=== PATIENT | male | born 1990 | race Caucasian/White ===

== ENCOUNTER 2023-12-02 13:29 | Emergency (ER) | payer MEDICAID, OTHER ==
[2023-12-02 14:11] LABS: BASOPHILS # (AUTO) 0.1 10^3/uL (0.0-0.1); BASOPHILS % (AUTO) 0.8 %; EOSINOPHILS % (AUTO) 0.1 %; HCT - HEMATOCRIT 39.5 % (42.0-52.0); LYMPHOCYTES # (AUTO) 0.6 10^3/uL (1.5-3.5); LYMPHOCYTES % (AUTO) 7.5 %; MEAN CORPUSCULAR HGB CONC 35.4 g/dL (32.0-36.0); MEAN CORPUSCULAR VOLUME 95.9 fL (80.0-94.0); MEAN PLATELET VOLUME 9.6 fL (7.4-11.4); MONOCYTES # (AUTO) 0.8 10^3/uL (0.0-1.0); MONOCYTES % (AUTO) 10.7 %; NEUTROPHILS # (AUTO) 6.2 10^3/uL (1.5-6.6); NEUTROPHILS % (AUTO) 80.4 %; PLT - PLATELET COUNT 244 10^3/uL (130-450); RED BLOOD COUNT 4.12 10^6/uL (4.70-6.10); RED CELL DISTRIBUTION WIDTH 11.6 % (12.0-15.0); WHITE BLOOD COUNT 7.7 x10^3/uL (4.8-10.8)
--- NOTE | 2023-12-02 14:21 | ED Physician Documentation ---
PD HPI NVD - Stated complaint Stated Complaint: N/V,SOA,SWEATING - Chief complaint Chief Complaint: Abd Pain - Additonal information Additional information: 33-year-old male with no pertinent past medical history presents emergency department for nausea vomiting diarrhea. Patient said about 4 days ago he started feeling upset stomach nausea with emesis and multiple episodes of diarrhea to the point now that patient says it is almost clear he says that he is having multiple episodes of sweating at work he tries his heart as he can to stay hydrated and feels like he sweats it out immediately is feeling shaky and ill with any minimal activity has been trying to go to work but is feeling very weak and fatigued. He also reports that he drinks about 4-6 beers a day he has never had alcohol withdrawal symptoms in the past and does not feel like he is having any withdrawal symptoms right now and is not having any cravings with how ill he is feeling. PD PAST MEDICAL HISTORY - Past Medical History Past Medical History: No - Past Surgical History Past Surgical History: No - Present Medications Home Medications: Ambulatory Orders Medication Instructions Recorded Confirmed Naltrexone HCl 50 mg PO DAILY #30 tab 12/02/23 Ondansetron Odt [Zofran Odt] 4 mg TL Q6H PRN #10 tablet 12/02/23 - Allergies Allergies/Adverse Reactions: Allergies Allergy/AdvReac Type Severity Reaction Status Date / Time No Known Drug Allergies Allergy Verified 12/02/23 13:38 - Social History Does the pt smoke?: No Smoking Status: Never smoker Does the pt drink ETOH?: Yes ETOH Use: Beer Does the pt have substance abuse?: No - Immunizations Immunizations are current?: Yes - POLST Patient has POLST: No PD ED PE NORMAL - Vitals Vital signs reviewed: Yes - General General: Alert and oriented X 3, No acute distress - HEENT HEENT: Atraumatic, PERRL - Cardiac Cardiac: RRR - Respiratory Respiratory: No respiratory distress - Abdomen Abdomen: Normal bowel sounds, Soft, Non distended, No organomegaly, Other (Hyperactive bowel tones) - Back Back: No CVA TTP - Derm Derm: Normal color, Warm and dry, No rash - Extremities Extremities: No edema, No calf tenderness / cord Results - Vitals Vitals: Vital Signs - 24 hr 07/18/24 07/18/24 07/18/24 13:33 15:38 17:22 Temperature 36.4 C L 36.5 C Heart Rate 86 79 75 Respiratory 18 16 18 Rate Blood Pressure 131/94 H 127/87 H 149/84 H O2 Saturation 100 100 99 Oxygen O2 Source Room air - Labs Labs: Laboratory Tests 12/02/23 12/02/23 12/02/23 14:06 14:06 14:06 WBC 7.7 RBC 4.12 L Hgb 14.0 Hct 39.5 L MCV 95.9 H MCH 34.0 H MCHC 35.4 RDW 11.6 L Plt Count 244 MPV 9.6 Neut # (Auto) 6.2 Lymph # (Auto) 0.6 L Barron # (Auto) 0.8 Eos # (Auto) 0.0 Baso # (Auto) 0.1 Absolute Nucleated RBC 0.00 Nucleated RBC % 0.0 Sodium 128 L Potassium 4.3 Chloride 89 L Carbon Dioxide 23 Anion Gap 16.0 H BUN 20 Creatinine 1.7 H Estimated GFR (MDRD) 46 L Glucose 86 Calcium 10.4 H Magnesium 1.5 L Total Bilirubin 2.0 H AST 45 H ALT 39 Alkaline Phosphatase 45 Total Creatine Kinase 157 Total Protein 8.3 Albumin 5.2 Globulin 3.1 Albumin/Globulin Ratio 1.7 Lipase 46 Urine Color Urine Clarity Urine pH Ur Specific [place] Urine Protein Urine Glucose (UA) Urine Ketones Urine Occult Blood Urine Nitrite Urine Bilirubin Urine Urobilinogen Ur Leukocyte Esterase Urine RBC Urine WBC Ur Squamous Epith Cells Urine Bacteria Urine Casts Urine Mucus Ur Microscopic Review Urine Culture Comments Nasal Adenovirus (PCR) Nasal B. parapertussis DNA (PCR) Nasal Coronavir 229E PCR Nasal Coronavir HKU1 PCR Nasal Coronavir NL63 PCR Nasal Coronavir OC43 PCR Nasal Enterovir/Rhinovir PCR Nasal Influenza B PCR Nasal Influenza A PCR Nasal Parainfluen 1 PCR Nasal Parainfluen 2 PCR Nasal Parainfluen 3 PCR Nasal Parainfluen 4 PCR Nasal RSV (PCR) Nasal B.pertussis DNA PCR Nasal C.pneumoniae (PCR) Jorge Luis Human Metapneumo PCR Nasal M.pneumoniae (PCR) Nasal SARS-CoV-2 (PCR) 12/02/23 12/02/23 14:12 14:36 WBC RBC Hgb Hct MCV MCH MCHC RDW Plt Count MPV Neut # (Auto) Lymph # (Auto) Barron # (Auto) Eos # (Auto) Baso # (Auto) Absolute Nucleated RBC Nucleated RBC % Sodium Potassium Chloride Carbon Dioxide Anion Gap BUN Creatinine Estimated GFR (MDRD) Glucose Calcium Magnesium Total Bilirubin AST ALT Alkaline Phosphatase Total Creatine Kinase Total Protein Albumin Globulin Albumin/Globulin Ratio Lipase Urine Color DARK YELLOW Urine Clarity CLEAR Urine pH 6.0 Ur Specific [place] 1.025 Urine Protein 100 H Urine Glucose (UA) NEGATIVE Urine Ketones 40 H Urine Occult Blood NEGATIVE Urine Nitrite NEGATIVE Urine Bilirubin MODERATE H Urine Urobilinogen 0.2 (NORMAL) Ur Leukocyte Esterase NEGATIVE Urine RBC 0-5 Urine WBC 4-5 Ur Squamous Epith Cells RARE Squamous Urine Bacteria Rare Urine Casts 6-10 Granular Casts Urine Mucus Moderate Strands Ur Microscopic Review INDICATED Urine Culture Comments NOT INDICATED Nasal Adenovirus (PCR) NOT DETECTED Nasal B. parapertussis DNA (PCR) NOT DETECTED Nasal Coronavir 229E PCR NOT DETECTED Nasal Coronavir HKU1 PCR NOT DETECTED Nasal Coronavir NL63 PCR NOT DETECTED Nasal Coronavir OC43 PCR NOT DETECTED Nasal Enterovir/Rhinovir PCR NOT DETECTED Nasal Influenza B PCR NOT DETECTED Nasal Influenza A PCR NOT DETECTED Nasal Parainfluen 1 PCR NOT DETECTED Nasal Parainfluen 2 PCR NOT DETECTED Nasal Parainfluen 3 PCR NOT DETECTED Nasal Parainfluen 4 PCR NOT DETECTED Nasal RSV (PCR) NOT DETECTED Nasal B.pertussis DNA PCR NOT DETECTED Nasal C.pneumoniae (PCR) NOT DETECTED Jorge Luis Human Metapneumo PCR NOT DETECTED Nasal M.pneumoniae (PCR) NOT DETECTED Nasal SARS-CoV-2 (PCR) NOT DETECTED PD Medical Decision Making - ED course ED course: 33-year-old male presents emerged part for generalized malaise nausea vomiting diarrhea. Labs are complete for further evaluation and he does not appear to be anemic or have any leukocytosis. He does appear to have a low sodium, sodium is found to be 128 patient reports in the privacy of just me and him without his mother present that he drinks a lot more than 6 beers a day so this low sodium could be due to Potomania. Slightly suppressed magnesium, 1 mg magnesium oxide was given to the patient. AST is slightly elevated at 45 as well as slightly elevated bilirubin at 2.0. Calcium found to be slightly elevated at 10.4 he appears to also have a acute kidney injury with a creatinine of 1.7 and GFR of 46. Respiratory panel is negative urinalysis is showing moderate bilirubin ketones and protein. I believe that patient is experiencing a possible GI bug on top of alcohol withdrawal symptoms. Patient was tearful when we discussed his alcohol dependence and says that he would like help and would like to get sober but is having a hard time doing so. He was willing to try naltrexone for alcohol and I sent a prescription of naltrexone to his preferred pharmacy on file. Patient was given very strict return precautions he was told not to cut alcohol cold turkey but just slowly start finding ways to cut back from alcohol. He was also told to follow-up with the residency clinic at [facility] where he lives to have his labs reevaluated in about a week.Strict ER return precautions given patient was given total of 2 L of IV fluid as well as Zofran and a prescription of Zofran was also sent to his preferred pharmacy. Patient was informed of all of his labs all questions answered safe for discharge Departure - Departure Disposition: 01 Home, Self Care Clinical Impression: BENSON (acute kidney injury), Hyponatremia, Nausea vomiting and diarrhea, Alcohol dependence Instructions: Naltrexone tablets Prescriptions: Naltrexone HCl 50 mg PO DAILY #30 tab Ondansetron Odt [Zofran Odt] 4 mg TL Q6H PRN #10 tablet PRN Reason: Nausea / Vomiting Comments: Thank you for trusting us with your care. I have sent a prescription of naltrexone to [facility] in [place]. I would check in with the [facility] resident clinic and have them reevaluate your labs including your sodium and your liver function for further evaluation make sure that things are improving. I would not drink any alcohol until then or significantly cut back. PLease present back to ER if you have any worsening symptoms. 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 Forms: PCP List Discharge Date/Time: 12/02/23 17:21
[2023-12-02 14:24] LABS: MAGNESIUM 1.5 mg/dL (1.7-2.3)
[2023-12-02 14:26] LABS: ALBUMIN 5.2 g/dL (3.2-5.5); ALBUMIN/GLOBULIN RATIO 1.7 (1.0-2.2); CALCIUM 10.4 mg/dL (8.5-10.3); CREATININE 1.7 mg/dL (0.6-1.3); POTASSIUM 4.3 mmol/L (3.5-4.5); TOTAL PROTEIN 8.3 g/dL (6.4-8.9)
[2023-12-02] MEDS: ONDANSETRON 4 MG/2 ML VIAL IVP STA (14:27)
[2023-12-02] MEDS: SODIUM CHLORIDE 0.9% 1,000 ML IV ONE (14:27)
[2023-12-02 14:47] LABS: BILIRUBIN,URINE MODERATE (NEGATIVE); GLUCOSE, URINE (UA) NEGATIVE (NEGATIVE); KETONES,URINE (UA) 40 mg/dL (NEGATIVE); LEUKOCYTE ESTERASE, URINE NEGATIVE (NEGATIVE); NITRITE,URINE NEGATIVE (NEGATIVE); OCCULT BLOOD,URINE NEGATIVE (NEGATIVE); PROTEIN,URINE 100 mg/dL (NEGATIVE); UROBILINOGEN,URINE 0.2 (NORMAL) E.U./dL (NORMAL)
[2023-12-02 14:52] LABS: CLARITY,URINE CLEAR (CLEAR)
[2023-12-02 15:04] LABS: BACTERIA,URINE Rare /HPF (None Seen); MUCUS,URINE Moderate Strands; RBC,URINE 0-5 /HPF (0-5); SQUAMOUS EPITHELIAL CELL,UR RARE Squamous (<= Few)
[2023-12-02] MEDS: MAGNESIUM OXIDE 400 MG TABLET PO STA (15:19)
[2023-12-02 15:46] LABS: B. PARAPERTUSSIS- RESP PCR PAN NOT DETECTED; B. PERTUSSIS- RESP PCR PANEL NOT DETECTED; C. PNEUMONIAE- RESP PCR PANEL NOT DETECTED; CORONAVIRUS 229E-RESP PCR NOT DETECTED; CORONAVIRUS HKU1-RESP PCR NOT DETECTED; CORONAVIRUS NL63-RESP PCR NOT DETECTED; CORONAVIRUS OC43-RESP PCR NOT DETECTED; HUMAN METAPNEUMOVIRUS NOT DETECTED; INFLUENZA A- RESP PCR PANEL NOT DETECTED; INFLUENZA B - RESP PCR PANEL NOT DETECTED; M. PNEUMONIAE- RESP PCR PANEL NOT DETECTED; PARAINFLUENZA VIRUS 1 NOT DETECTED; PARAINFLUENZA VIRUS 2 NOT DETECTED; PARAINFLUENZA VIRUS 3 NOT DETECTED; PARAINFLUENZA VIRUS 4 NOT DETECTED; RHINOVIRUS/ENTEROVIRUS NOT DETECTED; RSV- RESP PCR PANEL NOT DETECTED; SARS-CoV-2 -RESP PCR PANEL NOT DETECTED
[2023-12-02 17:23] VITALS: BP 149/84; O2SAT 99
== END 2023-12-02 17:21 | disposition home or self-care (01) ==
LOC: ED 13:29
DX: N17.9 Acute kidney failure, unspecified (principal); E87.1 Hypo-osmolality and hyponatremia; R11.2 Nausea with vomiting, unspecified; R19.7 Diarrhea, unspecified; F10.20 Alcohol dependence, uncomplicated
CPT/HCPCS: 36415; 80053; 81001; 82550; 83690; 83735; 85025; 87633; 99283; 99284; A9270; 81003; 87086